=== PATIENT | female | born 1950 | race Caucasian/White ===

== ENCOUNTER 2016-11-17 01:05 | Day surgery (SDC) | payer OTHER ==
[~2016-11-17] VITALS: Ht 177.8 cm; Wt 101.8 kg
[~2016-11-17 01:05] MED LIST: LEVO-86 PO; MOME17SP10 NS; SIMV20TA4 PO; TRAZ300T3 PO; VENL75TA3 PO; [UNRECOGNIZED DRUG - OTHER] PO
[2016-11-17] MEDS ORDERED: fentaNYL-PF 50 mCg/mL 2 mL Inj ONE (01:06)
[2016-11-17] MEDS ORDERED: Propofol 10,000 mCg/mL 20 mL Inj ONE (01:06)
[2016-11-17] MEDS ORDERED: Lactated Ringer's 1,000 ML IV SCH (05:00)
--- NOTE | 2016-11-17 08:07 | PCM.HPANE ---
Patient Data Surgeon Admitting Provider: Attending Provider:Angel Pickering MD Primary Care Physician:Andreia Phelps MD Other Provider:Eulalia Wang Anesthesia Reason for Visit Cervical Radiculopathy Ht/WT & BMI Body Mass Index Allergies Coded Allergies: No Known Allergies (Verified Allergy, Unknown, 12/30/14) Past Anesthesia History Anesthesia History: Denies:: Abnormal Airway, Anesthesia Reactions, Difficult Intubation, Fam Anesthesia Reaction, Fam Malignant Hypertherm, Malignant Hyperthermia Diabetes History Hx Diabetes?: No Medications Reported Medications Aspirin/Calcium Carbonate (Sourav Women's Aspirin Tablet)1 Each [id number] Mg PO DAILY 11/17/16 Albuterol HFA (Proair HFA)8.5 Gm Hfa.aer.ad2 Puffs INHALATION Q4H #1 INHALER 11/17/16 Beclomethasone Dipropionate (Qvar)8.7 Gm Aer.w.adap1 Puff INHALATION BID #8.7 GM 11/17/16 Ipratropium [place] (Ipratropium [place] Inhalant Solution)0.2 Mg/1 Ml Solution0.2 Mg IH QID Ref 0 11/17/16 Venlafaxine 75 Mg Bckgrv90 Mg PO DAILY Ref 0 11/16/16 Trazodone 300 Mg Xqinjj647 Mg PO HS Ref 0 11/16/16 Simvastatin 20 Mg Ozffsi77 Mg PO HS Ref 0 11/16/16 Levothyroxine Sodium (Levo-T)50 Mcg Plcdhg41 Mcg PO DAILY 11/16/16 Discontinued Reported Medications [Asthma med] No Conflict CheckUnknown Dose PO DAILY 11/16/16 Mometasone Furoate 50 Mcg [place].pump17 Gm NS BID 11/16/16 History History of ENT Problems?: No HEENT History: Denies:: Abnormal Airway Cataracts Difficult Intubation Dysphagia Glaucoma Hearing Problem Sinus Problem TMJ Denture Type: None Teeth Condition: Within Normal Limits Hx of Heart Problems?: Yes Cardiovascular History: Positive for:: Hypertension Hx of Respiratory Problem?: No Respiratory History: Denies:: Asthma COPD Chest Surgery Cough Dyspnea Emphysema Hemoptysis Oxygen Administration Pneumonia Pulmonary Embolism Tuberculosis Use of C-PAP Machine Use of Inhalers / NEBS Hx Neurologic Problems?: No Neurological History: Denies:: Alzheimer's Disease CVA Dementia Dizziness Headaches Multiple Sclerosis Parkinson's Disease Peripheral Neuropathy Seizures TIA Hx of GI Problems?: No Gastrointestinal History: Denies:: Cirrhosis Diverticulitis Gall Bladder Disease Gastroesphageal Reflux Gastrointestinal Bleeding Heartburn Hepatitis Hiatal Hernia Liver Disease Rectal Bleeding Hx of Problems?: No Genitourinary History: Denies:: HX of Hemodialysis Kidney Stones Urinary Tract Infection Female Hx: Denies:: Currently Endometriosis Pelvic Inflammatory Problems with Breasts? Skin History: Denies:: History Skin Disorders? Pressure Ulcers Hx Musculoskeletal Problems?: Yes Musculoskeletal History: Denies:: Back Injury Fibromyalgia Joint Replacement Musculoskeletal Trauma Myasthenia Gravis Osteoarthritis Rheumatoid Arthritis Systemic Lupus Hx of Psycho/Social Problems?: Yes Psycho Social History: Positive for:: Anxiety Denies:: Bipolar Disorder Hx Depression Suicide Attempt Hx Surgeries?: Yes Hx Any Other Health Problems?: Yes Other History: Denies:: Cancer Endocrine Disease Hospitalization Thyroid Disease History Blood Transfusions: Denies:: Accept Blood Products? Blood Transfuse Reaction Blood Transfusions Hx Diabetes: No Stop/Bang Risk Assessment Category Category 1A: Patient has history of documented sleep apnea, and HAS NOT received any narcotic, sedative or anesthesia administration during this stay. Category 1B: Patient has history of documented sleep apnea, and HAS received any narcotic , sedative or anesthesia administration during this stay Category 2: Patient has SUSPECTED Obstructive Sleep Apnea, and HAS received any narcotic , sedative or anesthesia administration during this stay. Category 3: Patient has SUSPECTED Obstructive Sleep Apnea and HAS NOT received narcotic, sedative or anesthesia administration during this stay. Category 4: Outpatient in Procedural Areas with known sleep apnea or who screen positive for High Risk via the STOP/BANG questionnaire. Exam Exam General Appearance: Alert, Oriented X3, Cooperative HEENT/AIRWAY: MP 2 Lungs: Clear to Auscultation Heart: Exam Unremarkable Plan Impression Patient chart reviewed, patient interviewed and anesthestic plan with risks, benefits, and alternatives discussed, and informed consent obtained. ASA Physical Status: ASA2 Mod Systemic Disease Anesthetic Plan: MAC Bene/Risks/Altern/Consents: Yes HP Complete Prior to Induction: Yes Vaughn Bal MD Nov 17, 2016 08:07
[2016-11-17] MEDS ORDERED: fentaNYL-PF 50 mCg/mL 2 mL Inj IVPUSH PRN (08:45)
[2016-11-17] MEDS ORDERED: LORazepam 1 mg Tablet PO PRN (08:45)
[2016-11-17 09:19] VITALS: BP 103/80; PULSE 66; RESP 16; O2SAT 96
[2016-11-17] MEDS ORDERED: BECL8.7A6 INHALATION (09:28)
[2016-11-17] MEDS ORDERED: [UNRECOGNIZED DRUG - CODE] PO (09:28)
[2016-11-17] MEDS ORDERED: ALBU8.5H2 INHALATION (09:28)
[2016-11-17] MEDS ORDERED: IPRA0.2S51 IH (09:28)
[2016-11-17 11:05] VITALS: BP 123/68; PULSE 67; RESP 16; O2SAT 95
--- NOTE | 2016-11-17 11:06 | PCM.ANEP1 ---
Post Anesthesia PACU Phase 1 Assessment Vital Signs Vital Signs Date Time Temp Pulse Resp B/P Pulse Ox O2 Delivery O2 Flow Rate FiO2 11/17/16 09:19 36.8 66 16 103/80 96 Room Air Anesthetic Administered: MAC Level of Alertness: Awake, talking VALDEZ's with Equal Strength: Yes Pain: No Nausea or Vomiting: No CV Function & Hydration Stable: Yes Airway Device: Oxygen Delivery: Room Air Lungs: Normal Air Movement PACU Phase 2 Assessment Complications: No Follow up Care: No Patient Instructions Provided: N/A Vaughn Bal MD Nov 17, 2016 11:06
[2016-11-17 11:10] VITALS: BP 112/65; PULSE 65; RESP 14; O2SAT 95
[2016-11-17 11:15] VITALS: BP 121/66; PULSE 94; RESP 12; O2SAT 94
--- NOTE | 2016-11-17 13:13 | DRSVH ---
PROCEDURE: MRI CERVICAL SPINE WITHOUT CONTRAST ([id number]) INDICATIONS: CERVICAL RADICULOPATHY TECHNIQUE: Noncontrast sagittal T1 spin echo and T2 fast spin echo, sagittal STIR, foraminal oblique sagittal T2 fast spin echo, and axial gradient echo or T2 fast spin echo through the cervical spine. COMPARISON: None. FINDINGS: Image quality: Excellent. Alignment and Curvature: There is normal bony alignment. Bone Marrow: Marrow demonstrates normal overall signal. Spinal Cord: Visualized spinal cord has normal size and signal. No cerebellar tonsillar herniation. Paraspinous Soft Tissues: No paravertebral masses. Prevertebral soft tissues are normal in thicknes s. C2-C3: Normal appearance. C3-C4: Mild disc bulge. No canal stenosis. No foraminal stenosis. C4-C5: Mild disc bulge with mild effacement of the anterior CSF space. No canal stenosis. No foramina l narrowing. C5-C6: Moderate disc desiccation and height loss. Broad-based disc bulge. Effacement of the anterior CSF space. Flattening of the anterior aspect of the cord. No cord signal abnormality. No foraminal st enosis. C6-C7: Severe disc desiccation and height loss. Schmorl's nodes. Broad-based disc bulge with mild eff acement of the anterior CSF space. No canal stenosis or deformity of the cord. Mild left foraminal st enosis. C7-T1: Small broad-based left lateral disc bulge which narrows the left lateral recess. Mild left for aminal narrowing. The right foraminal narrowing. No canal stenosis. IMPRESSION: 1. Moderate to severe degenerative disc disease at C5-6 and C6-7. Disc height is otherwise preserved. 2. No canal stenosis of the cervical spine. 3. Mild left foraminal narrowing at C6-7 and C7-T1. The neuroforamina are otherwise widely patent. 4. Mild flattening of the anterior aspect of the cord at C5-6 secondary to broad-based disc bulge wit hout cord signal abnormality. Dictated by: Tia Navas M.D. on 11/17/2016 at 13:05 Approved by: Tia Navas M.D. on 11/17/2016 at 13:11
== END 2016-11-17 23:59 | disposition home or self-care (01) ==
LOC: MRI 01:05
PROVIDERS: ATTEND Orthopaedic Surgery
DX: M50.323 Other cervical disc degeneration at C6-C7 level (principal); M50.322 Other cervical disc degeneration at C5-C6 level; M48.03 Spinal stenosis, cervicothoracic region; M54.12 Radiculopathy, cervical region; F40.240 Claustrophobia
CPT/HCPCS: 72141; J2250; J3010